=== PATIENT | male | born 1995 | race Hispanic/Latino ===

== ENCOUNTER 2023-11-22 11:45 | Emergency (ER) | payer OTHER ==
[~2023-11-22] VITALS: Ht 167.6 cm; Wt 74.8 kg
[2023-11-22] MEDS: KETOROLAC 10 MG TABLET PO SCH (13:05)
[2023-11-22] MEDS: LIDOCAINE HCL 1% 20 ML VIAL INJ SCH (13:05)
[2023-11-22] MEDS: LIDOCAINE HCL 1% 20 ML VIAL ONE (13:06)
[2023-11-22] MEDS ORDERED: KETO10TA2 PO (15:39)
[2023-11-22 15:45] VITALS: BP 123/77; PULSE 94; RESP 18; O2SAT 99
== END 2023-11-22 15:54 | disposition home or self-care (01) ==
LOC: EDH 11:45
DX: S61.212A Laceration without foreign body of right middle finger without damage to nail, initial encounter (principal); S61.214A Laceration without foreign body of right ring finger without damage to nail, initial encounter; S61.216A Laceration without foreign body of right little finger without damage to nail, initial encounter; W26.0XXA Contact with knife, initial encounter; Y93.89 Activity, other specified; Y92.89 Other specified places as the place of occurrence of the external cause; Y99.8 Other external cause status
CPT/HCPCS: 12002; 73130